=== PATIENT | male | born 1995 | race Caucasian/White ===

== ENCOUNTER 2016-10-28 02:28 | Emergency (ER) | payer BC ==
[2016-10-28 02:34] VITALS: RESP 16; TEMP 97.9
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
[2016-10-28 04:11] VITALS: BP 134/95; PULSE 75; O2SAT 96
== END 2016-10-28 04:12 | disposition home or self-care (01) ==
DX: S06.0X0A Concussion without loss of consciousness, initial encounter (principal); V18.9XXA Unspecified pedal cyclist injured in noncollision transport accident in traffic accident, initial encounter; Y92.410 Unspecified street and highway as the place of occurrence of the external cause; Y99.8 Other external cause status; Y93.89 Activity, other specified